=== PATIENT | female | born 1945 | race Caucasian/White ===

== ENCOUNTER 2017-03-31 01:22 | Inpatient (IN) | payer OTHER, MEDICARE ==
[~2017-03-31] VITALS: Ht 149.9 cm; Wt 56.7 kg
[~2017-03-31 01:22] MED LIST: BENADRYL25 MG PO; DEXILANT60 M1 PO; LIPITOR40 M1; LISINOPRIL20 M1 PO; NORVASC5 M1 PO; PAROXETINE HCL20 M1 PO; SYNTHROID75 MCG PO; TOPROL XL25 M1 PO; TUMS200 MG PO; VIVARIN200 MG
--- NOTE | 2017-03-31 15:15 | Operative Report ---
Operative/Inv Procedure Report Surgery Date: 03/31/17 Name of Procedure: Attempted laparoscopic converted to open redo hiatal hernia repair-aborted Open lysis of adhesions Pre-Operative Diagnosis: Twice Recurrent hiatal hernia Post-Operative Diagnosis: Same Estimated Blood Loss: 50ml to 100ml Surgeon/Town Planner: [place] RODRIGUES,Catracho Levin/Екатерина ANDREA Anesthesia: general endotracheal tube Operative Indication: 72-year-old woman with twice recurrent hiatal hernia. She has unrelenting GERD symptoms on proton pump inhibitors. Imaging studies show recurrent hiatal hernia and free flow reflux on upper GI series. She presents for re-repair with Abbey gastroplasty and Terence fundoplication Operative/Procedure Note Note: Patient brought preoperatively supine. Gen. anesthesia was obtained and she was placed in lithotomy position. Her abdomen was prepped and draped. An incision in the epigastric region was made vertically through pre-existing epigastric laparotomy scar. We came through subcutaneous tissues with cautery and blunt dissection and grasped the fascia. It was incised sharply and stay sutures placed. A blunt Briggs port was placed. A pneumoperitoneum achieved. There were numerous adhesions and we could not identify any abdominal wall in which to place another port. We got into the lesser sac with the camera but that didn't really help us 1 bit. So elected to convert to an open operation. Made a midline incision through her pre-existing scar and dissected down to the fascia with cautery. The fascia was incised with cautery. Adhesions were taken down sharply on both sides. There were quite dense eventually were able to identify the left upper quadrant omentum and spleen. A small tear in the capsule of the spleen was encountered. Hemostasis was achieved with direct pressure and Surgicel. The heart apart was the liver edge. Dissecting this area was quite tedious as the stomach was plastered up to the liver. Were able to dissect out enough that we could place a Bookwalter retraction system. We spent about an hour and a half lysing very dense adhesions to the liver and hiatal region. Unfortunately we could never identify any structure other than the stomach. Neither the left nor the right crura were able to be visualized. I could feel them with my finger but there were dense adhesions that prohibited any significant dissection. I could palpate the esophagus and identify the OG tube and it. But again it didn't really help a 68 can never get around the stomach. I then went through the lesser sac and tried to dissect that way but it didn't help at this point I was concerned about creating an injury that could not be repaired. I elected to abort the operation. Peritoneal cavity was irrigated with saline. The retractors removed sponge and needle counts are correct. The fascia was closed with 0 Maxon suture. Skin closed with 4-0 Vicryl. Steri- Strips and sterile dressing applied. Sponge and needle counts are correct Findings: Extremely dense adhesions prohibiting dissection of the hiatus CC: Britany RODRIGUES,Raffaele Dumont
[2017-03-31 17:16] VITALS: BP 98/52
[2017-03-31 17:58] VITALS: BP 100/60
--- NOTE | 2017-03-31 20:20 | PN- General Surgery ---
Subjective Subjective: POST-OP NOTE No complaints. Tolerating sips of clears. No nausea. Not yet out of bed. She denies dizziness. No shortness of breath. No chest pains. Eager for amin removal, but willing to keep it in overnight. Objective Vital Signs and I&Os Vital Signs Date Time Temp Pulse Resp B/P B/P Pulse O2 O2 Flow FiO2 Mean Ox Delivery Rate 03/31 1758 97.8 84 18 100/60 93 Nasal 2.0L Cannula 03/31 1734 94 Nasal 2.0L Cannula 03/31 1716 98.8 74 20 98/52 94 Nasal 2.0L Cannula Physical Exam: General - alert & oriented x 3. comfortable. no acute distress. Lungs - clear bilaterally. no w/r/r. Cardiac - s1s2. reg. Abdomen - soft. midline dressing stained but intact. - amin draining clear, yellow urine. Extremities - warm bilaterally. no c/c/e. calves soft and nontender b/l. Current Medications: Current Medications Sig/Brenda Start time Last Medication Dose Route Stop Time Status Admin Amlodipine Besylate 5 MG DAILY 04/01 1000 AC PO Atorvastatin Calcium 40 MG 1700 04/01 1700 AC PO Calcium Carbonate 2,000 MG 4 TIMES/DAY 03/31 1800 AC 03/31 PO 1801 Cefazolin Sodium 2 GM Q8H 03/31 2000 AC 03/31 N/A 1 UNIT IV 04/01 0429 195 Cefazolin Sodium 2,000 MG ONCE 03/31 0000 DC IV 03/31 2359 Fentanyl Citrate 250 MCG .STK-MED ONE 03/31 1119 DC IM 03/31 1120 Heparin Sodium 5,000 UNIT Q8 03/31 2200 AC (Porcine) SC Hydromorphone HCl 0.5 MG Q4P PRN 03/31 1515 AC IV Influenza Virus 0.5 ML ONCE ONE 03/31 181 DC 03/31 Vaccine IM 03/31 181 195 Levothyroxine Sodium 0.075 MG DAILY AC 04/01 07 AC PO Lisinopril 20 MG DAILY 04/01 1000 AC PO Omeprazole 40 MG DAILY AC 04/01 07 AC PO Ondansetron HCl 4 MG Q6P PRN 03/31 1515 AC IV Oxycodone HCl 5 MG Q6P PRN 03/31 1515 AC PO Oxycodone HCl 10 MG Q6P PRN 03/31 1515 AC PO Assessment/Plan Assessment/Plan This 72 year old female with hx htn, hld, hypothyroidism, is POD#0 s/p attempted laparoscopic converted to open redo hiatal hernia repair-aborted, open lysis of adhesions for twice recurrent hiatal hernia and associated GERD not well controlled with oral medications clears as tolerated sammi-operative ancef x 2 doses d/c amin in am f/u am labs oob/ambulation hep sc - dvt ppx home meds ordered will d/w Core Measures Venous Thromboembolism VTE Risk Factors Surgery No Mechanical VTE Prophylaxis d/t N/A MechProphylax Ordered No VTE Pharm Prophylaxis d/t NA PharmProphylax ordered
[2017-03-31 21:43] VITALS: BP 110/66
[2017-04-01 07:06] VITALS: BP 108/64
[2017-04-01 08:31] LABS: ABSOLUTE BASOPHIL COUNT 0 /CUMM (0.0-0.2); ABSOLUTE EOSINOPHIL COUNT 0 /CUMM (0.0-0.7); ABSOLUTE LYMPH COUNT 0.8 /CUMM (1.2-3.4); ABSOLUTE MONOCYTE COUNT 0.8 /CUMM (0.10-0.60); EOSINOPHIL % 0 % (0-5); MEAN CORPUSCULAR HGB 33.2 PG (27.0-31.0); WHITE BLOOD CELL COUNT 9.3 /CUMM (4.8-10.8)
[2017-04-01 09:06] LABS: ABSOLUTE GRANULOCYTE CT 7.7 /CUMM (1.4-6.5); BASOPHIL % 0 % (0.0-2.0); MEAN CORPUSCULAR HGB CONC 33.6 G/DL (33.0-37.0); MEAN CORPUSCULAR VOLUME 98.8 FL (81.0-99.0); MEAN PLATELET VOLUME 7.9 FL (7.4-10.4); PLATELET COUNT 206 /CUMM (130-400); RBC DISTRIBUTION WIDTH 13.8 % (11.5-14.5); RED BLOOD CELL CT 3.13 /CUMM (4.20-5.40)
[2017-04-01 09:29] LABS: GRANULOCYTE % 82.8 % (42.2-75.2); HEMATOCRIT 30.9 % (37-47)
--- NOTE | 2017-04-01 10:53 | PN- General Surgery ---
See Addendum Subjective Subjective: POD#1 S/P ABORTED LAP ZACKERY, OPEN HARI NO MAJOR ISSUES OVERNIGHT DENEIS CP, SOB, NO N+V WITH CLEAR BUT IS BELCHING NOW Objective Vital Signs and I&Os Vital Signs Date Time Temp Pulse Resp B/P B/P Pulse O2 O2 Flow FiO2 Mean Ox Delivery Rate 04/01 0901 76 106/60 04/01 0816 22 93 Room Air 04/01 0816 20 95 Nasal 2.0L Cannula 04/01 08 93 Room Air 04/01 0706 98.1 78 20 108/64 95 04/01 0000 Nasal 2.0L Cannula 03/31 2143 98.8 85 20 110/66 92 Nasal 2.0L Cannula 03/31 1758 97.8 84 18 100/60 93 Nasal 2.0L Cannula 03/31 1734 94 Nasal 2.0L Cannula 03/31 1716 98.8 74 20 98/52 94 Nasal 2.0L Cannula Intake & Output 04/01 1600 04/01 0804/01 0000 03/31 1600 03/31 0800 03/31 0000 Intake Total 50 Output Total 650 250 Balance -650 -200 Intake, IV 50 Output, Urine 650 250 Patient 125 lb Weight Weight Reported by Patient Measurement Method Physical Exam: CV: RRR LUNGS: CLEAR ABD: SOFT, +BS DRY BLOODY DRAINAGE ON DRSG EXPECTED PAIN TO PALP EXT: WARM, DISTAL CMS INTACT VILLALOBOS: CLEAR URINE Assessment/Plan Assessment/Plan SURGICAL STABLE PLAN D/C VILLALOBOS CONT CLEARS FOR NOW OOB/AMBULATE AWAIT IMPROVED BOWEL FXN Core Measures Venous Thromboembolism VTE Risk Factors Surgery No Mechanical VTE Prophylaxis d/t N/A MechProphylax Ordered No VTE Pharm Prophylaxis d/t NA PharmProphylax ordered
[2017-04-01 14:09] VITALS: BP 116/64
--- NOTE | 2017-04-01 19:52 | Event Note ---
See Addendum Event Note Event Note: Called by nursing staff to evaluate patient for oxygen saturation on room air 77 that responded to only 88% on 2 L and subsequently 91% on 3 L. Upon arrival to the room the patient was awake alert and responsive to all questions denying chest pain shortness of breath however was feeling anxious as she has been since her aborted lap Terence procedure yesterday. CV: Regular rate and rhythm, tachycardic Lungs: No wheezes rales or rhonchi, good air movement Abdomen: Expected tenderness to palpation, no guarding, nondistended, bowel sounds active Extremity: No calf tenderness bilaterally, distal CMS intact EKG: Sinus tachycardia, 103 BPM, no evidence of ischemia Assessment: Anxiety attack, hypoxia of unknown origin Currently O2 sat: 93% on 3 L Plan: Chest x-ray pending Stat CBC, BEP, trop If chest x-ray clear, normal saline bolus 500 mL, then restart IV fluid normal saline at 100 mL/h
--- NOTE | 2017-04-01 20:09 | RADIOLOGY REPORT ---
EXAMINATION: XR PORTABLE CHEST CLINICAL INFORMATION: Hypoxia. COMPARISON: CT chest 01/07/2016. TECHNIQUE: Portable frontal view of the chest was obtained. FINDINGS: Bilateral breast implants which are partially calcified partially limit evaluation of the lower lung nuñez. No discrete focal airspace consolidation. No pleural effusion. No pneumothorax. Cardiomediastinal silhouette and pulmonary vasculature are within normal limits. No acute osseous findings. Mild osteoarthritic changes of both shoulders and the partially visualized spine with mild right convex scoliosis of the thoracic spine. IMPRESSION: Limited evaluation of the bilateral lower lung nuñez due to breast implants. No evidence of acute cardiopulmonary disease. If there is persistent clinical concern consider a lateral radiograph for further evaluation
[2017-04-01 20:43] LABS: ABSOLUTE BASOPHIL COUNT 0 /CUMM (0.0-0.2); ABSOLUTE EOSINOPHIL COUNT 0 /CUMM (0.0-0.7); ABSOLUTE GRANULOCYTE CT 6.3 /CUMM (1.4-6.5); ABSOLUTE LYMPH COUNT 1.5 /CUMM (1.2-3.4); ABSOLUTE MONOCYTE COUNT 0.7 /CUMM (0.10-0.60); BASOPHIL % 0.3 % (0.0-2.0); EOSINOPHIL % 0.5 % (0-5); GRANULOCYTE % 73.4 % (42.2-75.2); HEMATOCRIT 30.6 % (37-47); MEAN CORPUSCULAR HGB 33.1 PG (27.0-31.0); MEAN CORPUSCULAR VOLUME 97.4 FL (81.0-99.0); MEAN PLATELET VOLUME 7.8 FL (7.4-10.4); PLATELET COUNT 231 /CUMM (130-400); RBC DISTRIBUTION WIDTH 13.6 % (11.5-14.5); RED BLOOD CELL CT 3.14 /CUMM (4.20-5.40); WHITE BLOOD CELL COUNT 8.5 /CUMM (4.8-10.8)
[2017-04-01 21:49] VITALS: BP 108/60
--- NOTE | 2017-04-01 23:36 | CT SCAN REPORT ---
EXAMINATION: CT ANGIOGRAM CHEST WITH AND WITHOUT CONTRAST (CT PULMONARY ANGIOGRAM FOR PE) CLINICAL INFORMATION: Rule out PE, hypoxia. COMPARISON: Chest radiography earlier today. Chest CT performed 01/07/2016. TECHNIQUE: Prior to contrast administration, noncontrast localization images were obtained. Subsequently, multidetector volumetric imaging was performed from the thoracic inlet to below the diaphragms following the administration of 95 mL Optiray 320 intravenous contrast. No contrast reaction reported. Sagittal, coronal, and MIP oblique sagittal reformatted images were obtained on the CT workstation, uploaded to PACS, and reviewed. Total exam dose-length product 368 mGy-cm. FINDINGS: QUALITY OF STUDY/CONTRAST BOLUS: Chest CT performed. PULMONARY ARTERIES: No central or segmental pulmonary emboli. THORACIC AORTA: No aneurysm or dissection. Mild scattered atherosclerotic calcification. LUNG/PLEURA: Trace bilateral pleural effusions. Adjacent dependent consolidation. Additional linearly oriented right lower lobe opacification is favored to represent atelectasis over other consolidation. MEDIASTINUM: Normal heart size. Scattered coronary artery calcification. No pericardial effusion. No hilar or mediastinal lymphadenopathy. Diffusely patulous esophagus which is partially fluid-filled. No evidence of septal bowing or right heart strain. CHEST WALL/AXILLA: No axillary or internal mammary lymphadenopathy. Bilateral breast implants are demonstrated. OSSEOUS STRUCTURES: No acute osseous abnormalities. UPPER ABDOMEN: Trace ascites adjacent to the spleen. Cholecystectomy clips. There is a chronic right hepatic cyst. No reflux of contrast into the hepatic veins to suggest elevated right heart pressures. IMPRESSION: 1. No pulmonary embolism. 2. Trace bilateral pleural effusions. 3. Dependent bilateral lower lobe consolidation and an additional area of linearly oriented right lower lobe consolidation. Findings are favored to represent atelectasis over other consolidation such as pneumonia. 4. Scattered coronary artery calcification. 5. Diffusely patulous and partially fluid-filled esophagus. VTE: Negative.
[2017-04-02 07:16] VITALS: BP 118/68
[2017-04-02 08:00] LABS: ABSOLUTE BASOPHIL COUNT 0 /CUMM (0.0-0.2); ABSOLUTE EOSINOPHIL COUNT 0.1 /CUMM (0.0-0.7); ABSOLUTE GRANULOCYTE CT 4.7 /CUMM (1.4-6.5); ABSOLUTE MONOCYTE COUNT 0.5 /CUMM (0.10-0.60); BASOPHIL % 0.4 % (0.0-2.0); EOSINOPHIL % 1.3 % (0-5); GRANULOCYTE % 73.3 % (42.2-75.2); HEMATOCRIT 30.2 % (37-47); MEAN CORPUSCULAR HGB 32.7 PG (27.0-31.0); MEAN CORPUSCULAR HGB CONC 33.5 G/DL (33.0-37.0); MEAN CORPUSCULAR VOLUME 97.7 FL (81.0-99.0); MEAN PLATELET VOLUME 6.8 FL (7.4-10.4); PLATELET COUNT 226 /CUMM (130-400); RBC DISTRIBUTION WIDTH 13.9 % (11.5-14.5); RED BLOOD CELL CT 3.09 /CUMM (4.20-5.40); WHITE BLOOD CELL COUNT 6.4 /CUMM (4.8-10.8)
--- NOTE | 2017-04-02 08:16 | PN- General Surgery ---
See Addendum Subjective Subjective: Overnight events noted. Patient continues to deny chest pain and shortness of breath. She does state that she has what she feels is diaprhagmatic pain upon deep inspiration, so her respiratory effort remains poor as a result. She is tolerating nasal cannula o2. She is tolerating clear liquid diet, no complaints of nausea or vomitting. She has been belching but she states that is her baseline. She has been passing flatus, no bm. Objective Vital Signs and I&Os Vital Signs Date Time Temp Pulse Resp B/P B/P Pulse O2 O2 Flow FiO2 Mean Ox Delivery Rate 04/02 715 98.2 88 18 118/68 90 04/02 0000 94 Nasal 3.0L Cannula 04/01 2149 98.6 107 20 108/60 90 Room Air 04/01 2030 90 Nasal 3.0L Cannula 04/01 1915 85 Nasal 3.0L Cannula 04/01 1409 98.4 85 18 116/64 93 04/01 0901 76 106/60 04/01 0816 22 93 Room Air 04/01 0816 20 95 Nasal 2.0L Cannula Intake & Output 04/02 1600 04/02 0800 04/02 0000 04/01 1600 04/01 0800 04/01 0000 Intake Total 700 980 50 Output Total 300 1200 650 250 Balance 400 -220 -650 -200 Intake, IV 500 20 50 Intake, Oral 200 960 Number 0 Bowel Movements Output, Urine 300 1200 650 250 Patient 125 lb Weight Weight Reported by Patient Measurement Method Physical Exam: General: Alert and oriented x3, no acute distress Cardiac: RRR, s1s2 Pulmonary: Non-labored respiratory effort, effort poor. Pain with deep inspiration. Breath sounds clear but diminished at bases bilaterally Abdomen: Jeannie-incisional tenderness, abdominal binder in place, bowel sounds ausculted through binder. Abdomen palpated, non-distended. Extremities: Moves all extremities, distal sensation intact. Skin warm and well perfused. Dp pulses palpable, Bilateral calves soft and non-tender. Assessment/Plan Assessment/Plan This is a 72 year old female, POD 2 s/p lap to open julito, aborted revision cassidy. Hypoxic episode of unknown origin on POD 1, cta of chest obtained, negative for PE, suggenstive of atelectasis. Elevated troponins, 0.11, .013, third pending. Cardiology to see today. -EKG: Sinus rhythm with questionable flattened t wave -Consider transfer to tele pending troponin, cardiology to see, will discuss with Dr. Manley -Continue clear liquid diet -Incentive spirometry encouraged -Abdominal binder in place, ?shallow breathing due to binder, if unable to wean o2, consider dc binder Will discuss poc with Dr. Mandujano or Dr. Dia. Core Measures Venous Thromboembolism VTE Risk Factors Surgery No Mechanical VTE Prophylaxis d/t N/A MechProphylax Ordered No VTE Pharm Prophylaxis d/t NA PharmProphylax ordered
[2017-04-02 08:41] VITALS: BP 116/70
[2017-04-02 14:54] VITALS: BP 118/68
--- NOTE | 2017-04-02 16:27 | Cons- Cardiology ---
General Information and HPI Consulting Request Date of Consult: 04/02/17 Requested By: Catracho Dia MD Reason for Consult: Tachycardia and positive troponin I. Source of Information: patient, old records Exam Limitations: no limitations History of Present Illness: Mrs. Lili Silva is 72-year-old female with a history of former tobacco use, COPD, obstructive sleep apnea (CPAP intolerant), hypothyroidism, hypertension, dyslipidemia, previous chest pain syndrome with negative noninvasive cardiac evaluation in 2002, remote duodenal ulcer with previous NSAID use, irritable bowel syndrome, severe gastroesophageal reflux disease on long-term proton pump inhibitors, twice recurrent hiatal hernia who presented for a re-repair with Abbey gastroplasty and Terence fundoplication that was unsuccessful due to dense adhesions who we are asked to evaluate in regard to POD #1 tachycardia and oxygen desaturation with modestly positive troponin I, no acute-appearing electrocardiographic changes, and a negative CTA on 04/01/2017 for pulmonary embolism. Mrs. Silva is feeling improved, her heart rate and O2 saturations have improved. She denies any chest discomfort, shortness of breath, orthopnea, paroxysmal nocturnal dyspnea, syncope, near syncope, lightheadedness, dizziness, or claudication. She admits to palpitations that occur approximately once weekly and/or a brief duration. She denies any history of coronary, valvular, dysrhythmic/conduction disease, or cardiomyopathy. She denies any history of diabetes mellitus, vascular disease, but has a very strong family history of premature atherosclerotic disease with her father having a myocardial infarction at age 57 years, a sister having a stroke at age 51 years, and a brother undergoing CABG 3 in his early 50s. Allergies/Medications Allergies: Coded Allergies: codeine (AGGRESIVE 03/28/17) morphine (VOMIT 03/28/17) Home Med List: Amlodipine Besylate (Norvasc) 5 MG TABLET 1 TAB PO DAILY HTN (Reported) Atorvastatin Calcium (Lipitor) 40 MG TABLET CHOLESTEROL (Reported) Caffeine (Vivarin) 200 MG TABLET ADD (Reported) Calcium Carbonate (TUMS) 200 MG CALCIUM (500 MG) TAB.CHEW 4 TAB PO 4 TIMES/DAY REFLUX (Reported) Dexlansoprazole (Dexilant) 60 MG CAP.BP 1 CAP PO DAILY REFLUX (Reported) diphenhydrAMINE HCl (Benadryl) 25 MG CAP ALLERGY (Reported) Levothyroxine Sodium (Synthroid) 75 MCG TABLET 1 TAB PO DAILY REPLACEMENT ( Reported) Lisinopril 20 MG TABLET 1 TAB PO DAILY HTN (Reported) Metoprolol Succ XL (Toprol XL) 25 MG TAB 1 TAB PO DAILY HTN (Reported) Paroxetine HCl 20 MG TABLET 1 TAB PO DAILY DEPRESSION (Reported) Review of Systems Review of Systems: A 14 point system review was obtained and was noncontributory, other than as above. Past History Medical History Blood Transfusion Hx: No Neurological: peripheral neuropathy EENT: hearing loss Cardiovascular: hypertension, hyperlipidemia Respiratory: emphysema, obstructive sleep apnea Gastrointestinal: diverticulitis, irritable bowel syndrome Hepatic: NONE Renal: URINARY/RENAL INFECTION Musculoskeletal: disk herniation, degen joint disease, osteoarthritis, sciatica, SCOLIOSIS Psychiatric: ADD Endocrine: hypothyroidism Blood Disorders: NONE Cancer(s): NONE GAME PRODUCER/Reproductive: NONE Surgical History Surgical History: cholecystectomy, hysterectomy, HIATAL HERNIA REPAIR R SHOULDER ARTHROSCOPY BREAST AUGMENTATION TONSILECTOMY FOOT SURGERY Psychosocial History Where Do You Live? Home Services at Home: None Smoking Status: Former Smoker Exam & Diagnostic Data Vital Signs and I&O Vital Signs Date Time Temp Pulse Resp B/P B/P Pulse O2 O2 Flow FiO2 Mean Ox Delivery Rate 04/02 1454 98.6 90 20 118/68 92 Nasal 3.0L Cannula 04/02 0841 78 116/70 04/02 0840 78 116/70 04/02 0800 90 Nasal 3.0L Cannula 04/02 0716 98.2 88 18 118/68 90 04/02 0000 94 Nasal 3.0L Cannula 04/01 2149 98.6 107 20 108/60 90 Room Air 04/01 2029 90 Nasal 3.0L Cannula 04/01 1915 85 Nasal 3.0L Cannula Intake & Output 04/02 1600 04/02 0800 04/02 0000 04/01 1600 04/01 0800 04/01 0000 Intake Total 820 100 700 980 50 Output Total 650 497 025 0342 650 250 Balance 170 -200 400 -220 -650 -200 Intake, IV 20 500 20 50 Intake, Oral 800 100 200 960 Number 1 0 Bowel Movements Output, Urine 650 556 653 6720 650 250 Patient 125 lb Weight Weight Reported by Patient Measurement Method Physical Exam: Well-developed, well-nourished elderly female in no acute distress with nasal oxygen in place. Vital signs: See above. HEENT: Normocephalic, atraumatic, EOMI, slightly dry mucous membranes. Neck: No JVD, no bruits. Lungs: Decreased at the bases and otherwise clear. Heart: S1, S2 with no murmur, gallop, or rub appreciated. PMI fifth ICS at [facility]. Abdomen: Soft, mild incisional tenderness, positive bowel sounds. Extremities: No edema or tenderness. Labs/Alok Results: Laboratory Tests 04/02 04/02 04/02 0740 0740 0136 Chemistry Sodium (137 - 145 mmol/L) Cancelled 137 Potassium (3.5 - 5.1 mmol/L) Cancelled 3.7 Chloride (98 - 107 mmol/L) Cancelled 99 Carbon Dioxide (22 - 30 mmol/L) Cancelled 31 H Anion Gap (5 - 16) Cancelled 8 BUN (7 - 17 mg/dL) Cancelled 16 Creatinine (0.5 - 1.0 mg/dL) Cancelled 0.9 Estimated GFR (>60 ml/min) > 60 BUN/Creatinine Ratio (7 - 25 %) Cancelled 17.8 Troponin I (< 0.11 ng/ml) 0.10 0.13 *H Hematology CBC w Diff NO MAN DIFF REQ WBC (4.8 - 10.8 /CUMM) 6.4 RBC (4.20 - 5.40 /CUMM) 3.09 L Hgb (12.0 - 16.0 G/DL) 10.1 L Hct (37 - 47 %) 30.2 L MCV (81.0 - 99.0 FL) 97.7 MCH (27.0 - 31.0 PG) 32.7 H MCHC (33.0 - 37.0 G/DL) 33.5 RDW (11.5 - 14.5 %) 13.9 Plt Count (130 - 400 /CUMM) 226 MPV (7.4 - 10.4 FL) 6.8 L Gran % (42.2 - 75.2 %) 73.3 Lymphocytes % (20.5 - 51.1 %) 16.5 L Monocytes % (1.7 - 9.3 %) 8.5 Eosinophils % (0 - 5 %) 1.3 Basophils % (0.0 - 2.0 %) 0.4 Absolute Granulocytes (1.4 - 6.5 /CUMM) 4.7 Absolute Lymphocytes (1.2 - 3.4 /CUMM) 1.0 L Absolute Monocytes (0.10 - 0.60 /CUMM) 0.5 Absolute Eosinophils (0.0 - 0.7 /CUMM) 0.1 Absolute Basophils (0.0 - 0.2 /CUMM) 0 04/010 0615 Chemistry Sodium (137 - 145 mmol/L) 133 L 139 Potassium (3.5 - 5.1 mmol/L) 3.4 L 3.6 Chloride (98 - 107 mmol/L) 98 102 Carbon Dioxide (22 - 30 mmol/L) 30 27 Anion Gap (5 - 16) 5 10 BUN (7 - 17 mg/dL) 15 14 Creatinine (0.5 - 1.0 mg/dL) 0.9 0.8 Estimated GFR (>60 ml/min) > 60 > 60 BUN/Creatinine Ratio (7 - 25 %) 16.7 17.5 Phosphorus (2.5 - 4.5 mg/dL) 3.9 Magnesium (1.6 - 2.3 mg/dL) 1.9 1.6 Troponin I (< 0.11 ng/ml) 0.11 *H Hematology CBC w Diff NO MAN DIFF REQ NO MAN DIFF REQ WBC (4.8 - 10.8 /CUMM) 8.5 9.3 RBC (4.20 - 5.40 /CUMM) 3.14 L 3.13 L Hgb (12.0 - 16.0 G/DL) 10.4 L 10.4 L Hct (37 - 47 %) 30.6 L 30.9 L MCV (81.0 - 99.0 FL) 97.4 98.8 MCH (27.0 - 31.0 PG) 33.1 H 33.2 H MCHC (33.0 - 37.0 G/DL) 34.0 33.6 RDW (11.5 - 14.5 %) 13.6 13.8 Plt Count (130 - 400 /CUMM) 231 206 MPV (7.4 - 10.4 FL) 7.8 7.9 Gran % (42.2 - 75.2 %) 73.4 82.8 H Lymphocytes % (20.5 - 51.1 %) 18.1 L 8.6 L Monocytes % (1.7 - 9.3 %) 7.7 8.6 Eosinophils % (0 - 5 %) 0.5 0 Basophils % (0.0 - 2.0 %) 0.3 0 Absolute Granulocytes (1.4 - 6.5 /CUMM) 6.3 7.7 H Absolute Lymphocytes (1.2 - 3.4 /CUMM) 1.5 0.8 L Absolute Monocytes (0.10 - 0.60 /CUMM) 0.7 H 0.8 H Absolute Eosinophils (0.0 - 0.7 /CUMM) 0 0 Absolute Basophils (0.0 - 0.2 /CUMM) 0 0 Diagnostic Data EKG Results 04/02/2017: Sinus rhythm, probable left atrial abnormality, borderline LAD, and minor nondiagnostic low amplitude T waves. CXR Results 04/01/2017: Limited evaluation of the bilateral lower lung nuñez due to breast implants. No evidence of acute cardiopulmonary disease. If there is persistent clinical concern consider a lateral radiograph for further evaluation Other Results Chest CTA 04/01/2017: 1. No pulmonary embolism. 2. Trace bilateral pleural effusions. 3. Dependent bilateral lower lobe consolidation and an additional area of linearly oriented right lower lobe consolidation. Findings are favored to represent atelectasis over other consolidation such as pneumonia. 4. Scattered coronary artery calcification. 5. Diffusely patulous and partially fluid-filled esophagus. VTE: Negative. Assessment/Plan Assessment/Plan [id number] w/ hx former tobacco use, COPD, [place], hypothyroidism, HTN, HLD, previous CP syndrome w/ negative noninvasive cardiac evaluation in 2003, remote duodenal ulcer w/ previous NSAID use, severe GERD on long-term PPIs, twice recurrent hiatal hernia who presented for a re-repair w/ Abbey gastroplasty & Terence fundoplication that was unsuccessful due to dense adhesions who we are asked to evaluate in regard to POD #1 tachycardia and oxygen desaturation w/ a modestly positive troponin I, without electrocardiographic changes, and a negative CTA on 04/01/2017 for PE. Suspect the modest troponin bump is on the basis of a type II CO from sinus tachycardia, plus/minus left ventricular hypertrophy given her history of long- standing hypertension and not an acute coronary syndrome. Suspect the oxygen since desaturation was multifactorial and on the basis of her known COPD, postop atelectasis, restriction from the abdominal binder, etc. Recommendations: * Repeat electrocardiogram. * Echocardiogram to assess for overall left ventricular systolic/diastolic function, left ventricular hypertrophy, right ventricular function, PA pressure, etc. * Given her multiple risk factors for coronary disease would consider an imaging stress test that can be performed on an outpatient basis. * Continue DVT prophylaxis. Further recommendations will follow, Taken. Consult Acknowledgment - Thank you for your consult request.
[2017-04-02 21:42] VITALS: BP 118/62
[2017-04-03 07:03] VITALS: BP 138/69
--- NOTE | 2017-04-03 08:19 | Patient Discharge Instructions ---
Discharge Instructions General Discharge Information You were seen/treated for: Twice recurrent hiatal hernia You had these procedures: Surgery Date: 03/31/17 Name of Procedure: Attempted laparoscopic converted to open redo hiatal hernia repair-aborted, open lysis of adhesions Watch for these problems: fever>101.3, increased pain, redness/swelling/drainage, shortness of breath, chest pains, dizziness No bath, but you may shower: Yes Other wound care: keep incision clean & dry. leave white steri strips in place. showering ok but no bathing / pools. Diet Continue normal diet: Yes Recommended Diet: Regular Activity Full Activity/No Limits: No Activity Self Limited: Yes Pounds, do NOT lift more than: 10 Other activity limits: no heavy lifting. no strenuous activity. Acute Coronary Syndrome Inclusion Criteria At DC or during hospital stay patient has or had the following: ACS DIAGNOSIS No Discharge Core Measures Meds if any: Prescribed or Continued at Discharge Meds if any: NOT Prescribed or Continued at Discharge Congestive Heart Failure Inclusion Criteria At DC or during hospital stay patient has or had the following: CHF DIAGNOSIS No Discharge Core Measures Meds if any: Prescribed or Continued at Discharge Meds if any: NOT Prescribed or Continued at Discharge Cerebrovascular accident Inclusion Criteria At DC or during hospital stay patient has or had the following: CVA/TIA Diagnosis No Discharge Core Measures Meds if any: Prescribed or Continued at Discharge Meds if any: NOT Prescribed or Continued at Discharge Venous thromboembolism Inclusion Criteria VTE Diagnosis No VTE Type NONE VTE Confirmed by (Test) NONE Discharge Core Measures - Per Current guidelines, there needs to be overlap - treatment for the first 5 days of Warfarin therapy. - If discharged on Warfarin prior to 5 days of - overlap therapy, the patient will need to be - assessed for post discharge needs including - *Post discharge parental anticoagulation - *Warfarin and/or parental anticoagulation education - *Follow up date to check INR post discharge At least 5 days overlap therapy as Inpatient No Meds if any: Prescribed or Continued at Discharge Note: Overlap Therapy is Warfarin and Anticoagulant Meds if any: NOT Prescribed or Continued at Discharge
[2017-04-03] MEDS ORDERED: OXYCODONE HCL5 M1 PO (08:25)
--- NOTE | 2017-04-03 10:19 | PN- General Surgery ---
Surgical Brief Attending Note Brief Attending Note: Patient feels well and tolerating regular diet. No acute coronary syndrome or PE by workup. 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 She states last stress test 8 mos ago.
[2017-04-03 11:09] VITALS: BP 138/80
--- NOTE | 2017-04-03 11:38 | Surgical Discharge Summary ---
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 Home Who Do You Live With? Spouse Services at Home: None What is Your Primary Language? Belarusian Review of Systems: see preop hp Hospital Course Course Attending Physician: Catracho Dia MD Primary Care Physician: Raffaele Garg MD Hospital Course: Admitted to the surgical service after failed redo Terence fundoplication. See operative note. Post operatively she developed tachycardia and dyspnea. CTA of chest negative for PE. Serial troponin showed very mild elevation(0.13), which then normalized. Cardiology consultation was obtained. Recommended continuing with preoperative medications and obtain echocardiogram. Patient felt well the following morning. 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 Allergies: Coded Allergies: codeine (AGGRESIVE 03/28/17) morphine (VOMIT 03/28/17) Significant Procedures: Open lysis adhesions--aborted Terence Disposition Summary Disposition Principal Diagnosis: GERD Additional Diagnosis: none Discharge Disposition: home or self care Discharge Instructions General Discharge Information Code Status: Full Code Patient's Diet: regular Patient's Activity: no lifting. Follow-Up Instructions/Appts: two weeks as arranged Medications at Discharge Discharge Medications: Continue taking these medications: diphenhydrAMINE HCl (Benadryl) 25 MG CAP Capsule ORAL Every Day Calcium Carbonate (TUMS) 200 MG CALCIUM (500 MG) TAB.CHEW 4 Tablet ORAL 4 TIMES A DAY Amlodipine Besylate (Norvasc) 5 MG TABLET 1 Tablet ORAL DAILY Dexlansoprazole (Dexilant) 60 MG LIZZY.BP 1 Capsule ORAL DAILY Levothyroxine Sodium (Synthroid) 75 MCG TABLET 1 Tablet ORAL DAILY Atorvastatin Calcium (Lipitor) 40 MG TABLET Lisinopril (Lisinopril) 20 MG TABLET 1 Tablet ORAL DAILY Paroxetine HCl (Paroxetine HCl) 20 MG TABLET 1 Tablet ORAL DAILY Metoprolol Succ XL (Toprol XL) 25 MG TAB 1 Tablet ORAL DAILY Caffeine (Vivarin) 200 MG TABLET Start taking the following new medications: Oxycodone HCl (Oxycodone HCl) 5 MG TABLET 1-2 Milligram ORAL EVERY 4-6 HOURS NEEDED as needed for pain control Qty = 30 No Refills Instructions: tylenol may be taken alternatively or in combination Copies To: Gloria RODRIGUES,Aguila; Britany RODRIGUES,Raffaele Dumont
== END 2017-04-03 14:37 | DRG 326 ==
LOC: SDA 01:22 → 2NB 01:22 → SDA 07:00 → STS 07:00 → EDSTATUS 07:00 → ENRESERV 16:05 → ENTRNSPT 16:33 → EDTRNSPT 16:39 → EDTRNSPTSTS 16:39 → 2NB 17:02 → CMPTRNSPT 17:05 → ENPENDDIS 04-03 10:53 → ENTRNSPT 04-03 14:00 → EDTRNSPT 04-03 14:26 → EDTRNSPTSTS 04-03 14:26 → 2NB 04-03 14:37 → CMPTRNSPT 04-03 14:43
PROVIDERS: Physician Assistant; Physician Assistant Surgical
PROC: 0DJ04ZZ Inspection of Upper Intestinal Tract, Percutaneous Endoscopic Approach (ICD-10-PCS; principal; 2017-03-31)
PROC: 0DNW0ZZ Release Peritoneum, Open Approach (ICD-10-PCS; 2017-03-31)
DX: K44.9 Diaphragmatic hernia without obstruction or gangrene (principal); I21.A1 Myocardial infarction type 2; G62.9 Polyneuropathy, unspecified; J95.89 Other postprocedural complications and disorders of respiratory system, not elsewhere classified; J98.11 Atelectasis; J44.9 Chronic obstructive pulmonary disease, unspecified; K66.0 Peritoneal adhesions (postprocedural) (postinfection); K21.9 Gastro-esophageal reflux disease without esophagitis; I10 Essential (primary) hypertension; R09.02 Hypoxemia; R00.0 Tachycardia, unspecified; E03.9 Hypothyroidism, unspecified; Z53.31 Laparoscopic surgical procedure converted to open procedure; H91.90 Unspecified hearing loss, unspecified ear; E78.5 Hyperlipidemia, unspecified; G47.33 Obstructive sleep apnea (adult) (pediatric)
CPT/HCPCS: 2NBSP; 36415; 71045; 82436; 87086; 93005; 93010; J0131; J0690; J1200; J1644; J2310; J2405; J7040; Q2036